=== PATIENT | female | born 1935 ===

== ENCOUNTER 2023-06-16 11:03 | Outpatient (REF) | payer OTHER, SELFPAY ==
[2023-06-16 14:16] LABS: TSH reflex Free T4 2.12 uIU/mL (0.32-4.0)
== END 2023-06-16 11:04 | disposition home or self-care (01) ==
LOC: HO.HHCL 11:03
PROVIDERS: Visit Provider Internal Medicine
DX: E03.9 Hypothyroidism, unspecified (principal)
CPT/HCPCS: 36415; 84443